=== PATIENT | female | born 1955 | race Caucasian/White ===

== ENCOUNTER 2023-10-06 19:50 | Observation (INO) | payer BC, SELFPAY ==
[2023-10-06] VITALS (11 sets, daily range): BP systolic 152–172; BP diastolic 82–137; PULSE 71–79; RESP 16–18; TEMP 36.6–36.7; O2SAT 96–98; BMI 27.4; BMI 25.3
--- NOTE | 2023-10-06 20:00 | ED.GENADULT ---
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 Patient notes that she has had pain on the left side of her neck for most of the day. 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 She does note that she has a carcinoid tumor near the left carotid. She states briefly earlier in the day she had a ?flash? headache in the right adventism. This has not come back. This evening at approximately 1930 hours she experienced a 10 minute episode of difficulty with word finding. Her did witness this. She states that she knew what she wanted to say but could not get it out. I did ask us been what he was hearing and he states that there were no specific words just sounds. During this time she denies numbness or tingling of the body. She does note all overall fatigue but states that she worked today. No recent cough cold or congestion. Patient is receiving chemo injections for carcinoid neuroendocrine cancer. She is currently on baby aspirin daily. Denies rapid heart rate or irregular heart rate. Was able to ambulate but seemed to be slower than normal per her . Patient notes multiple abdominal surgery with multiple abdominal clips and therefore is concerned about possible MRI. In 2008 she had ischemic small bowel and had part of the small bowel removed. In 2015 she had large part of the large intestine removed. She has also had a hysterectomy as well as cholecystectomy. Related Data Home Medications ?Medication ?Instructions ?Recorded ?Confirmed aspirin 81 mg tablet,delayed 81 mg PO QDAY 12/23/22 12/23/22 release cholecalciferol (vitamin D3) 75 75 mcg PO QDAY 12/23/22 12/23/22 mcg (3,000 unit) tablet lanreotide 120 mg/0.5 mL 120 mg subcut Q8W 12/23/22 12/23/22 subcutaneous syringe metformin 500 mg tablet 500 mg PO BID 12/23/22 12/23/22 Allergies Allergy/AdvReac Type Severity Reaction Status Date / Time No Known Drug Allergies Allergy Verified 12/23/22 17:37 Review of Systems Status of ROS: Reports: 10 or more systems reviewed and unremarkable except as noted in History and below [facility] Social History Smoking Status: Never smoker Do you use any of these nicotine containing products: None How often do you have a drink containing alcohol: never How often do you have six or more drinks on one occasion: Never AUDIT-C Alcohol total score: 0 Non-prescribed substance use: denies use Exam Narrative: Exam Narrative: Patient is alert and oriented. Makes good eye contact. Appears fatigued. But mentating and speaking normally. EOM is full with pupils equal round and reactive. Head is atraumatic normocephalic. Heart with a regular rate and rhythm. No additional heart sounds or murmurs noted. Lungs are clear bilaterally. Abdomen soft nontender. Lower extremities with 1+ peripheral edema. Upper extremity strength and motor intact. Lower extremity strength and motor intact. Stroke scale 0 Const: Vital Signs, click to edit/add: Vital Signs - 24 hr 10/06/23 19:53 10/06/23 20:41 10/06/23 20:42 Temperature 98.1 F Pulse Rate 78 77 Pulse Rate [Left P ulse Oximeter] 79 Respiratory Rate 16 Blood Pressure 160/137 H Blood Pressure [Ri ght Upper Arm] 171/89 H Pulse Oximetry 97 98 97 Oxygen Delivery Me thod Room Air 10/06/23 20:45 10/06/23 20:47 10/06/23 20:48 Temperature Pulse Rate 72 73 76 Pulse Rate [Left P ulse Oximeter] Respiratory Rate Blood Pressure 159/84 H Blood Pressure [Ri ght Upper Arm] Pulse Oximetry 97 96 96 Oxygen Delivery Me thod 10/06/23 21:00 10/06/23 21:02 10/06/23 21:15 Temperature Pulse Rate 71 75 71 Pulse Rate [Left P ulse Oximeter] Respiratory Rate Blood Pressure 152/82 H Blood Pressure [Ri ght Upper Arm] Pulse Oximetry 97 97 97 Oxygen Delivery Me thod 10/06/23 21:17 Temperature Pulse Rate 71 Pulse Rate [Left P ulse Oximeter] Respiratory Rate Blood Pressure 162/87 H Blood Pressure [Ri ght Upper Arm] Pulse Oximetry 97 Oxygen Delivery Me thod Documenting provider has reviewed patient's vital signs: yes Course Course ED Course: Patient seen immediately after triage and sent to CT for CT of the head and CTA of head and neck. Contacting Neurology concurrently. IV had been placed. Will check CBC, comprehensive panel, CRP, urinalysis as well as EKG. Consultations Consultation #1: I had the pleasure of speaking with Dr. Rankin from [facility]. With normal CT and CTA she does suggest hospitalization with echocardiogram and MRI tomorrow. Does not feel MRA is necessary if the CTA is normal. I did convey to the hospitalist that the CTA is are preliminary reads and will be read for a final tomorrow. While on common sometimes there is a change and they should watch for goes reports. Also suggested is an echocardiogram, continuing baby aspirin daily and permissive hypertension. Blood pressure goals below 180/100. We are directed to treat if blood pressure rises above 180/100. Vital Signs Vital signs: Initial Vital Signs Temperature 98.1 F 10/06/23 19:53 Temperature Source Temporal Artery Scan 10/06/23 19:53 Pulse Rate 79 10/06/23 19:53 Pulse Rhythm Regular 10/06/23 19:53 Respiratory Rate 16 10/06/23 19:53 Blood Pressure 171/89 H 10/06/23 19:53 Blood Pressure Mean 116 H 10/06/23 19:53 Blood Pressure Position Sitting 10/06/23 19:53 Pulse Oximetry 97 10/06/23 19:53 Oxygen Delivery Method Room Air 10/06/23 19:53 Vital Signs Temperature 98.1 F 10/06/23 19:53 Pulse Rate 79 10/06/23 19:53 Respiratory Rate 16 10/06/23 19:53 Blood Pressure 171/89 H 10/06/23 19:53 Pulse Oximetry 97 10/06/23 19:53 Oxygen Delivery Method Room Air 10/06/23 19:53 Temperature 98.1 F 10/06/23 19:53 Pulse Rate 71 10/06/23 21:17 Respiratory Rate 16 10/06/23 19:53 Blood Pressure 162/87 H 10/06/23 21:17 Pulse Oximetry 97 10/06/23 21:17 Oxygen Delivery Method Room Air 10/06/23 19:53 Medical Decision Making MDM Narrative Medical decision making narrative: 1. Transient neurological deficit-approximately 10 minute speech difficulty occurring at 1930 hours. No associated facial droop or weakness. CT/CTA reassuring. Neurology suggest overnight monitoring, echocardiogram, MRI, permissive hypertension not to exceed 180/100, continued aspirin use. 2. Neck pain-possibly muscular in nature. Patient does have noted carcinoid tumor near carotid artery. Range of motion of neck is full. 3. Hypertension-patient presenting with a blood pressure of 179 over 89. Discussion with neurologist. Suggest permission of hypertension unless blood pressure rises to 180/100. 4. Carcinoid neuroendocrine cancer-currently seeing [place] [facility], Dr. Faith. Receives injections of lanreotide. Last injection approximately 4 weeks ago 5. Disposition-admit under the care of Dr. Paula Mulligan hospitalist. Discussed plan with patient and her . Note patient has self-reported history of atrial fibrillation/flutter. She states this normally occurs as the lanreotide is wearing off. She last had the injection 4 weeks ago. She has not felt any irregular heartbeat recently. She takes aspirin daily. Lab Data Lab results reviewed: Yes I reviewed the patient's lab results Labs: Lab Results 10/06/23 10/06/23 Range/Units 20:10 20:25 WBC 7.75 (4.50-11.00) K/uL RBC 4.65 (4.00-5.20) m/uL Hgb 13.2 (12.0-16.0) gm/dL Hct 39.3 (33.0-51.0) % MCV 85 (80-100) fL MCH 28 (26-34) pg MCHC 34 (32-36) gm/dL RDW Coeff of Raquel 13.1 (11.5-15.5) % Plt Count 250 (140-440) K/uL Neut % (Auto) 69.2 (42.0-72.0) % Lymph % (Auto) 19.7 L (20-44) % [place] % (Auto) 6.6 (0.0-11.0) % Eos % (Auto) 3.7 (0.0-7.0) % Baso % (Auto) 0.4 (0.0-3.0) % Neut # (Auto) 5.36 (1.7-7.0) K/uL Lymph # (Auto) 1.50 (0.90-2.90) K/uL [place] # (Auto) 0.50 (0.00-0.90) K/UL Eos # (Auto) 0.29 (0.00-0.50) K/uL Baso # (Auto) 0.03 (0.00-0.30) K/uL Abs Immat Gran (auto) 0.03 (0.00-0.30) K/uL Imm/Tot Granulo (auto) 0.4 % Sodium 137 (135-149) mmol/L Potassium 3.6 (3.6-5.1) mmol/L Chloride 104 (96-114) mmol/L Carbon Dioxide 25 (20-32) mmol/L Anion Gap 8 (7-15) mEq/L BUN 17 (7-30) mg/dL Creatinine 1.1 (0.5-1.5) mg/dL Estimated Creat Clear 46.94 Estimated GFR 54 ml/min Glucose 212 H (60-115) mg/dL Calcium 8.9 (8.4-10.6) mg/dL Total Bilirubin 0.5 (0.1-1.5) mg/dL AST 23 (12-35) U/L ALT 17 (4-35) U/L Alkaline Phosphatase 68 (40-150) U/L C-Reactive Protein 0.8 (0.5-1.0) mg/dL Total Protein 6.6 (6.0-8.3) g/dL Albumin 4.3 (3.3-5.0) g/dL Urine Color Yellow (Yellow) Urine Appearance Clear (Clear) Urine pH 5.5 (5.0-8.5) Ur Specific [place] 1.010 (1.000-1.030) Urine Protein Negative (Negative) Urine Glucose (UA) Negative (Negative) Urine Ketones Negative (Negative) Urine Blood 1+ A (Negative) Urine Nitrite Negative (Negative) Urine Bilirubin Negative (Negative) Urine Urobilinogen 0.2 (0.2-1.0) Ur Leukocyte Esterase Trace A (Negative) Urine RBC 2-5 A (0-2) Urine WBC 2-5 (0-5) Ur Squamous Epith Cells Few (None-Few) Urine Bacteria Few A (None) Imaging Data CT scan - head: Attestation: I have reviewed the pertinent imaging results. My impression: No evidence of bleeding. Radiologist's impression: CT of the brain / head without intravenous contrast. Multiplanar axial, coronal, and sagittal reformats were reconstructed. FINDINGS: No intracranial hemorrhage. Normal appearance of the white matter. No acute or subacute cortically based infarct. No mass or mass effect. Normal ventricles. No skull fractures. No worrisome focal bone lesion. IMPRESSION: Normal head CT. CTA head and neck: Attestation: I have reviewed the pertinent imaging results. Radiologist's impression: FINDINGS: No high-grade stenosis, dissection, or aneurysm of the carotid or vertebral arteries. No embolus, thrombus, high-grade stenosis, or aneurysm of the major intracranial arteries. IMPRESSION: No acute findings on CT angiogram of the head and neck. ECG Data Attestation: I personally reviewed and interpreted this ECG as follows: Interpretation: Sinus rhythm at a rate of 78. I do not note any acute ST or T-wave changes. Q T and AK intervals within normal limits. Discharge Plan Discharge Clinical Impression: Transient neurologic deficit Patient Disposition: Admitted As Observation Condition: Unchanged
--- NOTE | 2023-10-06 20:09 | CRLHL7_ITS ---
For Patients: As a result of the Century Cures Act, medical imaging exams and procedure reports are released immediately into your electronic medical record. You may view this report before your referring provider. If you have questions, please contact your health care provider. INDICATION: Neck pain, right-sided headache, history of carcinoid.. COMPARISON: None. TECHNIQUE: CT of the brain / head without intravenous contrast. Multiplanar axial, coronal, and sagittal reformats were reconstructed. FINDINGS: No intracranial hemorrhage. Normal appearance of the white matter. No acute or subacute cortically based infarct. No mass or mass effect. Normal ventricles. No skull fractures. No worrisome focal bone lesion. IMPRESSION: Normal head CT. Please note that all CT scans at this facility use dose modulation, iterative reconstruction, and/or weight-based dosing when appropriate to reduce radiation dose to as low as reasonably achievable. Dictated by Sheyla Mooney MD @ 10/06/2023 8:46:24 PM (Electronically Signed)
--- NOTE | 2023-10-06 20:09 | CRLHL7_ITS ---
For Patients: As a result of the Century Cures Act, medical imaging exams and procedure reports are released immediately into your electronic medical record. You may view this report before your referring provider. If you have questions, please contact your health care provider. DATE: 10/06/2023 CLINICAL HISTORY: Patient with headache and neck pain. TECHNIQUE: Standard helical CT image acquisition of the neck up to the skull base after bolus intravenous contrast enhancement. 2D and 3D MIP images for post-processing were performed and interpreted on an independent workstation and 3D images were permanently archived. COMPARISON: CT same day. FINDINGS: The origins of the great vessels from the aortic arch are patent. The origin of the right vertebral artery is patent. The origin of the left vertebral artery is patent. The common carotid arteries are patent. There is no stenosis at the origin of the right internal carotid artery. There is plaque without stenosis at the origin of the left internal carotid artery. The rest of the cervical segments of the internal carotid arteries are patent up to the skull base. The right vertebral artery is dominant. The cervical segments of the vertebral arteries are patent up to the skull base. The visualized lung apices are unremarkable. The thyroid gland is unremarkable. The soft tissues of the neck are unremarkable. There are degenerative changes in the cervical spine. IMPRESSION: Patent cervical vasculature. Please note that all CT scans at this facility use dose modulation, iterative reconstruction, and/or weight-based dosing when appropriate to reduce radiation dose to as low as reasonably achievable. Dictated by America Robert MD @ 10/07/2023 10:52:51 AM (Electronically Signed)
--- NOTE | 2023-10-06 20:09 | CRLHL7_ITS ---
For Patients: As a result of the Century Cures Act, medical imaging exams and procedure reports are released immediately into your electronic medical record. You may view this report before your referring provider. If you have questions, please contact your health care provider. DATE: 10/06/2023 CLINICAL HISTORY: Patient with headache. TECHNIQUE: Standard helical CT image acquisition through the intracranial circulation following intravenous administration of contrast material with bolus tracking. 2D and 3D MIP images for post-processing were performed and interpreted on an independent workstation and 3D images were permanently archived. COMPARISON: CT same day. FINDINGS: There is no cerebral aneurysm or large vessel occlusion. The right internal carotid artery is normal. The right middle cerebral artery and its branches are normal. The right anterior cerebral artery and its branches are normal. The left internal carotid artery is normal. The left middle cerebral artery and its branches are normal. The left anterior cerebral artery and its branches are normal. The anterior communicating artery is well visualized and appears normal. The right vertebral artery and PICA are normal. The left vertebral artery and PICA are normal. The vertebral arteries are codominant. The basilar artery is patent and appears normal. The right posterior cerebral artery is normal. The left posterior cerebral artery is normal. The visualized venous structures are patent. IMPRESSION: Patent proximal intracranial vasculature without intracranial aneurysms. Please note that all CT scans at this facility use dose modulation, iterative reconstruction, and/or weight-based dosing when appropriate to reduce radiation dose to as low as reasonably achievable. Dictated by America Robert MD @ 10/07/2023 10:56:13 AM (Electronically Signed)
[2023-10-06 20:31] LABS: Basophils Absolute Auto 0.03 K/uL (0.00-0.30); Basophils Percent Auto 0.4 % (0.0-3.0); Eosinophils Absolute Auto 0.29 K/uL (0.00-0.50); Eosinophils Percent Auto 3.7 % (0.0-7.0); Hematocrit 39.3 % (33.0-51.0); Hemoglobin* 13.2 gm/dL (12.0-16.0); Immature Granulocytes Abs Auto 0.03 K/uL (0.00-0.30); Immature Granulocytes Pct Auto 0.4 %; Lymphocytes Percent Auto 19.7 % (20-44); Mean Corpuscular HGB Conc 34 gm/dL (32-36); Mean Corpuscular Hemoglobin 28 pg (26-34); Mean Corpuscular Volume 85 fL (80-100); Monocytes Percent Auto 6.6 % (0.0-11.0); Neutrophils Absolute Auto 5.36 K/uL (1.7-7.0); Neutrophils Percent Auto 69.2 % (42.0-72.0); Platelet Count* 250 K/uL (140-440); RDW Coefficient of Variation % 13.1 % (11.5-15.5); Red Blood Count 4.65 m/uL (4.00-5.20); White Blood Count* 7.75 K/uL (4.50-11.00)
[2023-10-06 20:32] LABS: Appearance Urine Clear (Clear); Bilirubin Urine Negative (Negative); Blood Urine 1+ (Negative); Color Urine Yellow (Yellow); Glucose Urine Negative (Negative); Ketones Urine Negative (Negative); Leukocyte Esterase Urine Trace (Negative); Nitrite Urine Negative (Negative); Protein Urine Negative (Negative); Urobilinogen Urine 0.2 (0.2-1.0); pH Urine 5.5 (5.0-8.5)
[2023-10-06 20:39] LABS: Slide Review Reflex No
[2023-10-06 20:45] LABS: Albumin* 4.3 g/dL (3.3-5.0); Chloride* 104 mmol/L (96-114); Potassium* 3.6 mmol/L (3.6-5.1); Sodium* 137 mmol/L (135-149)
[2023-10-06 20:47] LABS: Bilirubin Total* 0.5 mg/dL (0.1-1.5); Creatinine* 1.1 mg/dL (0.5-1.5); Est. Creatinine Clearance* 46.94; Estimated Glomerular Filt Rate 54 ml/min
[2023-10-06 20:48] LABS: Alanine Aminotransferase* 17 U/L (4-35); Alkaline Phosphatase* 68 U/L (40-150); Anion Gap 8 mEq/L (7-15); Aspartate Amino Transferase* 23 U/L (12-35); Blood Urea Nitrogen* 17 mg/dL (7-30); Calcium* 8.9 mg/dL (8.4-10.6); Carbon Dioxide* 25 mmol/L (20-32); Glucose* 212 mg/dL (60-115); Total Protein* 6.6 g/dL (6.0-8.3)
[2023-10-06 20:51] LABS: C Reactive Protein* 0.8 mg/dL (0.5-1.0)
--- NOTE | 2023-10-06 20:53 | ED.NURSE ---
Pt reports not having any slurred speech, face is appearing symmetrical at this time. No one sided weakness.
[2023-10-06 20:57] LABS: Bacteria Urine Few; Squamous Epithelial Cell Urine Few (None-Few)
--- NOTE | 2023-10-06 21:52 | ED.NURSE ---
Report given to dirk RN, pt to 256.
[2023-10-06] MEDS: 0.9 % SODIUM CHLORIDE 500 ML 500 ML IV (22:49)
--- NOTE | 2023-10-06 23:00 | PM.IMHP1 ---
Hospitalist- H&P: HPI History of Present Illness Time Seen by Provider: 22:50 Date Seen: 10/06/23 Chief complaint: Diff forming words, Pain on L side neck Narrative: Wendy Medley is a 68 year old female with h/o DM2 came in through the ER for difficulty speaking. She was sitting in a restaurant with her having a conversation around 7pm when she suddenly couldn't find the words. Her speech was coming out in parts of words or syllables. She knew she was having difficulty and her noticed it as well. It lasted about 10-15 minutes then resolved completely on its own. She has not had any return of these or any other symptoms. This morning she felt like the left side of her neck was stiff, painful and swollen since waking at 6am and had a brief sharp stabbing pain on the right side of her head/forehead around 11am. This went away on its own after 45 seconds to a minute. Neck stiffness went away this evening sometime. She's never had anything like this before. 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 This tumor was found as part of a workup for a mass in her mesentery that was causing intestinal blockage. She has developed many allergies to food since then including banana, kiwis, avocados, citric that cause severe abdominal cramps. For the carcinoid tumor she receives lanreotide injections every 3-6 months. She notes a racing heart rate at night sometimes for a few nights when she is due for her next dose. She tells me that this is atrial fibrillation, but it has but never been diagnosed as that. She said she was told when she started those injections that she could develop atrial fibrillation so she just assumed that that was it. She has not had a director of cardiac rehabilitation or ever sought medical care for this racing heart. She tells me that she has discussed it with her oncologist. Review of Systems Status of ROS: Reports: 10 or more systems reviewed and unremarkable except as noted in History and below [facility] Medical History (Updated 10/07/23 @ 00:17 by Paula Mulligan MD) Neuroendocrine tumor ?D3A.8 - Other benign neuroendocrine tumors (ICD-10) Superficial thrombophlebitis ?I80.9 - Phlebitis and thrombophlebitis of unspecified site (ICD-10) Varicose veins of both lower extremities ?I83.93 - Asymptomatic varicose veins of bilateral lower extremities (ICD-10) Type 2 diabetes mellitus ?E11.9 - Type 2 diabetes mellitus without complications (ICD-10) Obesity ?E66.9 - Obesity, unspecified (ICD-10) Hyperlipidemia ?E78.5 - Hyperlipidemia, unspecified (ICD-10) History of uterine cancer ?Z85.42 - Personal history of malignant neoplasm of other parts of uterus (ICD-10) Carcinoid tumor of small intestine, malignant ?C7A.019 - Malignant carcinoid tumor of the small intestine, unspecified portion (ICD-10) Surgical History (Updated 10/06/23 @ 23:47 by Paula Mulligan MD) History of colon surgery ?Z98.890 - Other specified postprocedural states (ICD-10) H/O section ?Z98.891 - History of uterine scar from previous surgery (ICD-10) S/P cholecystectomy ?Z90.49 - Acquired absence of other specified parts of digestive tract (ICD-10) H/O: hysterectomy ?Z90.710 - Acquired absence of both cervix and uterus (ICD-10) Family History Mother High blood pressure Social History (Updated 10/06/23 @ 23:18 by Paula Mulligan MD) Narrative: . 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 Smoked for about 3 years around 17 years of age. Denies alcohol. FULL CODE. What is your current living situation?: I presently have a place to live Problems where you live: no known problems Problems where you live details: NA In the past 12 months, utilities in danger of being shut off: no In past 12 months, lack of transportation kept you from medical appts, meetings, work, or getting things needed for daily living: no In the past 12 mos, have been you worried that your food would run out before you had money to buy more?: never true In the past 12 mos, the food you bought just didn't last and you didn't have money to buy more?: never true Smoking Status: Never smoker Do you use any of these nicotine containing products: None Second hand tobacco smoke exposure: No How often do you have a drink containing alcohol: never How often do you have six or more drinks on one occasion: Never AUDIT-C Alcohol total score: 0 Non-prescribed substance use: denies use Caffeine: Yes How often does anyone, including family, friends and others, physically hurt you: never How often does anyone, including family, friends and others, insult or talk down to you: never How often does anyone, including family, friends and others, threaten you with harm: never How often does anyone, including family, friends and others, scream or curse at you: never service: No Meds Home Medications and Allergies Home Medications ?Medication ?Instructions ?Recorded ?Confirmed ?Type aspirin 81 mg tablet,delayed 81 mg PO QDAY 12/23/22 10/06/23 History release cholecalciferol (vitamin D3) 75 75 mcg PO QDAY 12/23/22 10/06/23 History mcg (3,000 unit) tablet lanreotide 120 mg/0.5 mL 120 mg subcut Q8W 12/23/22 10/06/23 History subcutaneous syringe metformin 500 mg tablet 500 - 1,000 mg PO BID 12/23/22 10/06/23 History ibuprofen 200 mg capsule 200 mg PO Q6-8H PRN 10/06/23 10/06/23 History mecobalamin (vitamin B12) 1,000 1,000 mcg sublingual 3XW 10/06/23 10/06/23 History mcg disintegrating tablet,sublingual Allergies Allergy/AdvReac Type Severity Reaction Status Date / Time [place] And Derivatives Allergy Unknown Verified 10/06/23 23:00 cinnamon Allergy SOB Verified 10/06/23 23:00 loren Allergy SOB Verified 10/06/23 23:00 cough syrup Allergy Mild Uncoded 10/06/23 23:00 Allergies/Adverse Reaction Comments: Vitamin B12 Exam Narrative: Exam Narrative: General: No acute distress. Awake alert oriented x3. HEENT: Normocephalic atraumatic, pupils equally round and reactive to light and accommodation. Oropharynx clear. Mucous membranes are moist. No cervical lymphadenopathy, thyromegaly or carotid bruits. No JVD. I do not appreciate any swelling on the neck that she described. She did say it was gone at this time. Neck is nontender to palpation. There is no erythema or rash. Cardiovascular: Regular rate and rhythm. No murmurs, gallops, or rubs. Chest: No increased work of breathing. Clear to auscultation bilaterally. No crackles or wheezes. Abdomen: Low midline scar, well healed. Bowel sounds present. Soft, nondistended, nontender. No hepatosplenomegaly or masses. Extremities: Significant varicose veins in the bilateral lower extremities. These are nontender to palpation. 1+ bilateral lower extremity edema, no cyanosis or clubbing. Skin: No jaundice, no pallor, no rashes. Neuro: There are no focal deficits. Romberg is negative. Gait is within normal limits. Cranial nerves 2-12 are intact. Extraocular movements are full. No nystagmus. No facial asymmetry. Tongue is midline. Peripheral vision and vision are grossly intact. Strength is 5/5 in all 4 extremities. DTRs intact and symmetric. Light touch sensation is intact in face body and extremities. Coordination is intact in upper and lower extremities. Const: Vital Signs, click to edit/add: Vital Signs - 24 hr 10/06/23 19:53 10/06/23 20:41 10/06/23 20:42 Temperature 98.1 F Pulse Rate 78 77 Pulse Rate [Left P ulse Oximeter] 79 Respiratory Rate 16 Blood Pressure 160/137 H Blood Pressure [Ri ght Upper Arm] 171/89 H Pulse Oximetry 97 98 97 [facility] 10/06/23 20:45 10/06/23 20:47 10/06/23 20:48 Temperature Pulse Rate 72 73 76 Pulse Rate [Left P ulse Oximeter] Respiratory Rate Blood Pressure 159/84 H Blood Pressure [Ri ght Upper Arm] Pulse Oximetry 97 96 96 [facility] 10/06/23 21:00 10/06/23 21:02 10/06/23 21:15 Temperature Pulse Rate 71 75 71 Pulse Rate [Left P ulse Oximeter] Respiratory Rate Blood Pressure 152/82 H Blood Pressure [Ri ght Upper Arm] Pulse Oximetry 97 97 97 [facility] 10/06/23 21:17 Temperature Pulse Rate 71 Pulse Rate [Left P ulse Oximeter] Respiratory Rate Blood Pressure 162/87 H Blood Pressure [Ri ght Upper Arm] Pulse Oximetry 97 [facility] - H&P: Result Labs Labs: Short CBC 10/06/23 Range/Units 20:10 WBC 7.75 (4.50-11.00) K/uL Hgb 13.2 (12.0-16.0) gm/dL Hct 39.3 (33.0-51.0) % Plt Count 250 (140-440) K/uL BMP 10/06/23 20:10 Sodium 137 Potassium 3.6 Chloride 104 Carbon Dioxide 25 BUN 17 Creatinine 1.1 Glucose 212 H Calcium 8.9 Liver Function 10/06/23 Range/Units 20:10 Total Bilirubin 0.5 (0.1-1.5) mg/dL AST 23 (12-35) U/L ALT 17 (4-35) U/L Alkaline Phosphatase 68 (40-150) U/L Albumin 4.3 (3.3-5.0) g/dL Urine 10/06/23 Range/Units 20:25 Urine Color Yellow (Yellow) Urine Appearance Clear (Clear) Urine pH 5.5 (5.0-8.5) Ur Specific Jean 1.010 (1.000-1.030) Urine Protein Negative (Negative) Urine Glucose (UA) Negative (Negative) 10/06/2023 EKG: Normal sinus rhythm, 70 beats per minute, normal EKG. Ordering Physician: Lakia Galeas M.D. Date of Service: 10/06/23 Procedure(s): CT head/brain [facility] Accession Number(s): [id number] cc: Lakia Galeas M.D.; Alina Valdes M.D.~ For Patients: As a result of the Century Cures Act, medical imaging exams and procedure reports are released immediately into your electronic medical record. You may view this report before your referring provider. If you have questions, please contact your health care provider. INDICATION: Neck pain, right-sided headache, history of carcinoid.. COMPARISON: None. TECHNIQUE: CT of the brain / head without intravenous contrast. Multiplanar axial, coronal, and sagittal reformats were reconstructed. FINDINGS: No intracranial hemorrhage. Normal appearance of the white matter. No acute or subacute cortically based infarct. No mass or mass effect. Normal ventricles. No skull fractures. No worrisome focal bone lesion. IMPRESSION: Normal head CT. Please note that all CT scans at this facility use dose modulation, iterative reconstruction, and/or weight-based dosing when appropriate to reduce radiation dose to as low as reasonably achievable. Dictated by Sheyla Mooney MD @ 10/06/2023 8:46:24 PM (Electronically Signed) Preliminary CTA head and neck: FINDINGS: No high-grade stenosis, dissection, or aneurysm of the carotid or vertebral arteries. No embolus, thrombus, high-grade stenosis, or aneurysm of the major intracranial arteries. IMPRESSION: No acute findings on CT angiogram of the head and neck. Assessment and Plan Assessment and plan (1) Transient neurologic deficit: Problem comment: - symptoms concerning for TIA. Symptoms have completely resolved; she is not a candidate for tPA. CT and CTA were unremarkable. Appreciate stroke neuro is recommendations. Admit for overnight neuro and cardiac monitoring. Continue baby aspirin daily. Obtain MRI. Allow for permissive hypertension. Patient also experiences a racing heart rate on occasion, she does not have any diagnosis of atrial fibrillation. Cardiac monitoring as above and consider event monitor or Zio patch as an outpatient. Obtain echocardiogram. Status: Acute (2) Type 2 diabetes mellitus: Problem comment: Continue metformin Status: Chronic (3) Carcinoid tumor of small intestine, malignant: Status: Chronic (4) Hypertension: Problem comment: - Allow for permissive HTN Status: Suspected
--- NOTE | 2023-10-06 23:06 | PC.NURSE ---
Pt admitted to #[id number] @ 2220. VSS with exception to elevated BP. Pt is afebrile. No c/o pain but does report bilateral arm tenderness d/t previous IV infiltration and being poked for new IV access. Pt is A&O and able to make her needs known. Neuro checks unremarkable on assessment. PIV in left AC is SL and C/D/I. Pt is continent of B&B. HRR and LS CTA. SBA to independent for ambulation and transfers. is at bedside and attentive to patient's needs.
[2023-10-07] VITALS (8 sets, daily range): BP systolic 136–182; BP diastolic 86–97; PULSE 66–72; RESP 16–18; TEMP 36.6–36.8; O2SAT 94–98
--- NOTE | 2023-10-07 00:35 | CRLHL7_ITS ---
For Patients: As a result of the Century Cures Act, medical imaging exams and procedure reports are released immediately into your electronic medical record. You may view this report before your referring provider. If you have questions, please contact your health care provider. INDICATION: Word-finding difficulties. TECHNIQUE: Brain MRI without contrast. COMPARISON: Head CT from 10/06/2023. FINDINGS: No evidence of acute ischemia. Scattered microhemorrhages within both cerebral hemispheres (age indeterminate). Scattered FLAIR hyperintensities within the supratentorial white matter, typical for chronic microvascular ischemic change. Mild generalized parenchymal volume loss. No mass effect or herniation. No hydrocephalus or extra-axial collections. The pituitary gland, parasellar structures and optic chiasm are normal. Posterior fossa is normal. All the major intracranial vascular structures demonstrate normal flow-related signal. The orbital contents are normal. No calvarial or skull base marrow replacing process. No obstructive sinus disease. No extracranial soft tissue findings. IMPRESSION: 1. No acute infarction or other acute intracranial pathology. 2. Mild chronic microvascular ischemic changes. 3. Multiple cerebral microhemorrhages (age indeterminate). Lobar distribution suggests amyloid angiopathy as the underlying etiology. Sequela of other small vessel vasculopathy can be considered in the appropriate clinical setting. Dictated by Benja Almanzar MD @ 10/07/2023 12:06:21 PM (Electronically Signed)
[2023-10-07] MEDS: ASPIRIN 81 MG TABLET EC PO ×2 (01:19→08:17)
[2023-10-07] MEDS: ACETAMINOPHEN 325 MG TABLET PO (05:27)
--- NOTE | 2023-10-07 06:42 | PC.NURSE ---
Pt alert and oriented x3. Afebrile. Pt denies pain and headache. Pt has equal strength bilaterally in arms and legs. Pt is up ad cooper, tolerating regular diet, and voiding. Tele NSR.?
[2023-10-07] MEDS: METFORMIN 500 MG TABLET PO (08:17)
[2023-10-07] MEDS: SODIUM CHLORIDE 0.9 % (FLUSH) 10 ML SYRINGE 5 ML IVF (08:35)
[2023-10-07] MEDS: CLOPIDOGREL 300 MG TABLET PO (12:38)
[2023-10-07] MEDS: ATORVASTATIN 10 MG TABLET PO (12:41)
--- NOTE | 2023-10-07 14:16 | NUTR.NU ---
RDN with nutrition screen related to diet order. Patient admitted for possible stroke. Current weight 177 lb; height 5ft 7in; BMI 27.8 kg/m2. No weight history to assess. Current diet order is low fat/low cholesterol. Meal intakes have been adequate. RDN visited with patient whom reports having a good appetite. She declined diet education related to heart healthy diet at this time. RDN encouraged patient to let staff know is she has any questions or concerns. RDN to follow up as needed.
--- NOTE | 2023-10-07 15:30 | PM.DS1 ---
DS: Providers Provider Date Seen: 10/07/23 Date of admission: 10/06/23 21:41 Primary care physician: Alina Valdes MD Admitting Clinician: Paula Mulligan MD Consults: Stroke Neurology (Dr. Lawson) Attending Physician on discharge: Naty Sanchez MD Date of Discharge: 10/07/23 DS: Diagnosis Discharge Diagnosis (1) Transient neurologic deficit: Status: Acute Problem details: - symptoms on admission: aphasia, concerning for TIA - symptoms resolved in ED; CT and CTA were unremarkable - MRI results below - stroke Neuro (Dr. Lawson) consulted during stay: given MRI findings, recommend ASA and statin, f/u with Neurology for EEG, 28 day Zio patch to evaluate for afib (2) Carcinoid tumor of small intestine, malignant: Status: Chronic Problem details: - follows with Dr. Jesus Faith at [facility] (3) Type 2 diabetes mellitus: Status: Chronic Problem details: - on Metformin (4) Hypertension: Status: Suspected Problem details: - Allowed permissive HTN, age appropriate BP on discharge DS: Summary Hospital Course Hospital Course: Wendy is a 68 yo female who presented to the hospital on 10/05 for aphasia. Imaging in ER reassuring and symptoms resolved upon presentation. Admitted for telemetry and MRI, TTE reassuring. MRI results below: 1. No acute infarction or other acute intracranial pathology. 2. Mild chronic microvascular ischemic changes. 3. Multiple cerebral microhemorrhages (age indeterminate). Lobar distribution suggests amyloid angiopathy as the underlying etiology. Sequela of other small vessel vasculopathy can be considered in the appropriate clinical setting. Reviewed findings with Dr. Lawson of Stroke Neurology; he recommends daily ASA, statin, 28 day Zio Patch, Neurology f/u with EEG. Plavix was initially discussed as a TIA treatment, then discontinued after microhemorrhages noted on MRI. Patient was back to baseline and ready for d/c home on 10/06. PCP updated, appt made for next week. Status at Discharge Functional status at discharge: independent ambulation Overall status at discharge: patient is back to baseline Time Spent with Patient Time attestation: Total time spent providing and/or coordinating discharge services: Time spent: Greater than 30 minutes Specific discharge activities: medication reconciliation, patient education Exam Narrative: Exam Narrative: Alert and oriented, nontoxic, sitting comfortably in bed Const: Vital Signs, click to edit/add: Vital Signs - 24 hr 10/06/23 19:53 10/06/23 20:41 10/06/23 20:42 Temperature 98.1 F Pulse Rate 78 77 Pulse Rate [Left P ulse Oximeter] 79 Pulse Rate [Pulse Oximeter] Respiratory Rate 16 Blood Pressure 160/137 H Blood Pressure [Ri ght Arm] Blood Pressure [Ri ght Upper Arm] 171/89 H Pulse Oximetry 97 98 97 Oxygen Delivery Me thod Room Air 10/06/23 20:45 10/06/23 20:47 10/06/23 20:48 Temperature Pulse Rate 72 73 76 Pulse Rate [Left P ulse Oximeter] Pulse Rate [Pulse Oximeter] Respiratory Rate Blood Pressure 159/84 H Blood Pressure [Ri ght Arm] Blood Pressure [Ri ght Upper Arm] Pulse Oximetry 97 96 96 Oxygen Delivery Me thod 10/06/23 21:00 10/06/23 21:02 10/06/23 21:15 Temperature Pulse Rate 71 75 71 Pulse Rate [Left P ulse Oximeter] Pulse Rate [Pulse Oximeter] Respiratory Rate Blood Pressure 152/82 H Blood Pressure [Ri ght Arm] Blood Pressure [Ri ght Upper Arm] Pulse Oximetry 97 97 97 Oxygen Delivery Me thod 10/06/23 21:17 10/06/23 22:53 10/06/23 22:53 Temperature 98 F Pulse Rate 71 Pulse Rate [Left P ulse Oximeter] Pulse Rate [Pulse Oximeter] 75 Respiratory Rate 18 Blood Pressure 162/87 H Blood Pressure [Ri ght Arm] 172/84 H Blood Pressure [Ri ght Upper Arm] Pulse Oximetry 97 97 97 Oxygen Delivery Me thod Room Air Room Air 10/07/23 01:10 10/07/23 01:10 10/07/23 01:10 Temperature 98.2 F Pulse Rate Pulse Rate [Left P ulse Oximeter] Pulse Rate [Pulse Oximeter] 68 68 68 Respiratory Rate 16 Blood Pressure Blood Pressure [Ri ght Arm] 182/97 H Blood Pressure [Ri ght Upper Arm] Pulse Oximetry 96 Oxygen Delivery Me thod Room Air 10/07/23 01:39 10/07/23 05:15 10/07/23 05:15 Temperature 98.0 F Pulse Rate 71 Pulse Rate [Left P ulse Oximeter] Pulse Rate [Pulse Oximeter] 71 71 Respiratory Rate 16 Blood Pressure Blood Pressure [Ri ght Arm] 136/94 H Blood Pressure [Ri ght Upper Arm] Pulse Oximetry 96 Oxygen Delivery Me thod Room Air 10/07/23 07:00 10/07/23 08:10 10/07/23 09:00 Temperature Pulse Rate 66 Pulse Rate [Left P ulse Oximeter] Pulse Rate [Pulse Oximeter] 68 66 Respiratory Rate 18 Blood Pressure Blood Pressure [Ri ght Arm] 155/90 H Blood Pressure [Ri ght Upper Arm] Pulse Oximetry 94 Oxygen Delivery Me thod Room Air 10/07/23 11:00 Temperature 97.8 F Pulse Rate Pulse Rate [Left P ulse Oximeter] Pulse Rate [Pulse Oximeter] 72 Respiratory Rate 16 Blood Pressure Blood Pressure [Ri ght Arm] 144/86 H Blood Pressure [Ri ght Upper Arm] Pulse Oximetry 98 Oxygen Delivery Me thod Room Air DS: Data Data Completed and Pending Labs on day of discharge: Labs from last 24 hours 10/06/23 10/06/23 20:25 20:10 WBC 7.75 RBC 4.65 Hgb 13.2 Hct 39.3 MCV 85 MCH 28 MCHC 34 RDW Coeff of Raquel 13.1 Plt Count 250 Neut % (Auto) 69.2 Lymph % (Auto) 19.7 L Jones % (Auto) 6.6 Eos % (Auto) 3.7 Baso % (Auto) 0.4 Neut # (Auto) 5.36 Lymph # (Auto) 1.50 Jones # (Auto) 0.50 Eos # (Auto) 0.29 Baso # (Auto) 0.03 Abs Immat Gran (auto) 0.03 Imm/Tot Granulo (auto) 0.4 Sodium 137 Potassium 3.6 Chloride 104 Carbon Dioxide 25 Anion Gap 8 BUN 17 Creatinine 1.1 Estimated Creat Clear 46.94 Estimated GFR 54 Glucose 212 H Calcium 8.9 Total Bilirubin 0.5 AST 23 ALT 17 Alkaline Phosphatase 68 C-Reactive Protein 0.8 Total Protein 6.6 Albumin 4.3 Urine Color Yellow Urine Appearance Clear Urine pH 5.5 Ur Specific [place] 1.010 Urine Protein Negative Urine Glucose (UA) Negative Urine Ketones Negative Urine Blood 1+ A Urine Nitrite Negative Urine Bilirubin Negative Urine Urobilinogen 0.2 Ur Leukocyte Esterase Trace A Urine RBC 2-5 A Urine WBC 2-5 Ur Squamous Epith Cells Few Urine Bacteria Few A Preliminary micro results at discharge 10/06/23 20:25 Urine Culture - Preliminary Urine,Clean Catch Gram positive cocci Discharge Plan Discharge Disposition: Home, Self-Care Date of Admission: 10/06/23 21:41 Attending Provider on Discharge: Ching Perez Primary Care Provider: Alina Valdes Condition: Unchanged Anticipated Discharge Date/Time: 10/07/23 15:00 Discharge Medications: New clopidogrel [Plavix] 75 mg tablet 75 mg PO DAILY Qty: 30 0RF atorvastatin 10 mg Tablet 10 mg PO HS 30 Days Qty: 30 3RF Continued aspirin 81 mg tablet,delayed release (DR/EC) 81 mg PO QDAY cholecalciferol (vitamin D3) 75 mcg (3,000 unit) tablet 75 mcg PO DAILY lanreotide 120 mg/0.5 mL syringe 120 mg subcut Q8W mecobalamin (vitamin B12) 1,000 mcg tablet,disintegrating 1,000 mcg sublingual 3XW Rx Instructions: place tablet under tongue and allow to dissolve for at least30 secs before swallowing metformin 500 mg tablet extended release 24 hr 500 mg PO BID Held ibuprofen 200 mg capsule 200 mg PO Q6-8H PRN Hold Instructions: Resume on 11/18/23. Discharge Orders: Discharge Order (Routine); Ordered 10/07/23 Ordered By: Naty Sanchez Patient Education: Atorvastatin (By mouth), Clopidogrel (By mouth), Aphasia (DC) Additional Instructions: 1. Appt with Dr. Valdes scheduled to set up 28 day Zio Patch and review symptoms. 2. [facility]- Dr. Valdes will need to place referral to the stroke clinic as an outpatient to discuss MRI findings and obtain EEG. 3. 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 Continue your 81mg ASA daily. Activity Level: Activity as Tolerated Activity Detail: recommend breaks at work with shifts no longer than 4-6 hours Discharge Diet: Diabetic Follow Up Appointments: [facility]- Neurology [Provider Group] - None ( Patient has to go though primary doctor to be seen at [facility]. ) Alina Valdes MD [Primary Care Provider] - 10/13/23 11:20 am ([facility] for follow-up and to schedule a Neurology appointment. ) Forms: [employer] Info Instructions
--- NOTE | 2023-10-07 18:41 | PC.NURSE ---
shift note; vss stable. neuro checks intact. IV dc'd intact Lt AC. Reviewed dc instructions and copies sent with pt.. Belongings reviewed and sent with pt.
== END 2023-10-07 16:33 | disposition home or self-care (01) ==
LOC: ED 21:34 → MEDSURG 21:41
PROVIDERS: Admitting Provider Family Medicine; Emergency Provider Family Medicine; PCP Family Medicine; Visit Provider Family Medicine
DX: R29.818 Other symptoms and signs involving the nervous system (principal); C7A.019 Malignant carcinoid tumor of the small intestine, unspecified portion; R53.83 Other fatigue; Z79.899 Other long term (current) drug therapy; E11.9 Type 2 diabetes mellitus without complications; Z79.84 Long term (current) use of oral hypoglycemic drugs; Z79.82 Long term (current) use of aspirin; E78.5 Hyperlipidemia, unspecified; I10 Essential (primary) hypertension; I83.93 Asymptomatic varicose veins of bilateral lower extremities; R47.01 Aphasia; Z98.891 History of uterine scar from previous surgery; Z87.891 Personal history of nicotine dependence; Z85.42 Personal history of malignant neoplasm of other parts of uterus; Z90.49 Acquired absence of other specified parts of digestive tract; Z90.710 Acquired absence of both cervix and uterus; Z98.890 Other specified postprocedural states
CPT/HCPCS: 36415; 70450; 70496; 70498; 70551; 80053; 81001; 85025; 86140; 87086; 87186; 93005; 93306; 96360; 99284; 99285; G0378; G0427; A9270; J7030; Q9967

== ENCOUNTER 2024-02-16 18:58 | Emergency (ER) | payer MEDICARE, BC, SELFPAY ==
[2024-02-16 19:17] VITALS: BP 139/78; PULSE 80; RESP 18; TEMP 36.5; O2SAT 95; BMI 26.8
--- NOTE | 2024-02-16 19:31 | CRLHL7_ITS ---
For Patients: As a result of the Century Cures Act, medical imaging exams and procedure reports are released immediately into your electronic medical record. You may view this report before your referring provider. If you have questions, please contact your health care provider. Indication: Trauma. Technique: Left ankle, 3 views. Comparison: None. Findings/Impression: Bones: Alignment is normal. No displaced fractures or bone lesions. Joint spaces: Unremarkable. Soft tissues: Unremarkable. Dictated by Khris Vera MD @ 02/16/2024 7:59:09 PM (Electronically Signed)
--- NOTE | 2024-02-16 19:32 | ED.GENADULT ---
HPI - General Adult General Date Seen: 02/16/24 Chief complaint: Extremity Pain/Injury, Lower Stated complaint: Fall, L ankle/hand injury Time Seen by Provider: 02/16/24 19:25 Source: patient Mode of arrival: wheelchair Limitations: no limitations History of Present Illness HPI narrative: Patient is a 68-year-old woman who says she went out to get the mail a little bit ago, it was dark and she missed the curb falling on her left side. She says her right knee kind of swung over and is little bruise and scraped, she has little bruising on her left hand and scraped her left elbow as well, but her primary concern is her left ankle which she has been unable to put weight on it since. She did ice it at home but says the weight of the ice pack seem to hurt more so she does not wish to ice it further. No other injuries or complaints. Related Data Home Medications ?Medication ?Instructions ?Recorded ?Confirmed cholecalciferol (vitamin D3) 75 75 mcg PO DAILY 12/23/22 10/07/23 mcg (3,000 unit) tablet lanreotide 120 mg/0.5 mL 120 mg subcut Q8W 12/23/22 10/06/23 subcutaneous syringe mecobalamin (vitamin B12) 1,000 1,000 mcg sublingual 3XW 10/06/23 10/06/23 mcg disintegrating tablet,sublingual metformin 500 mg tablet,extended 500 mg PO BID 10/07/23 10/07/23 release 24 hr lisinopril 5 mg tablet 5 mg PO DAILY 02/16/24 02/16/24 Previous Rx's ?Medication ?Instructions ?Recorded atorvastatin 10 mg tablet 10 mg PO HS 30 days #30 tabs 10/07/23 Allergies Allergy/AdvReac Type Severity Reaction Status Date / Time [place] [employer] And Derivatives Allergy Unknown Verified 10/06/23 23:00 cinnamon Allergy SOB Verified 10/06/23 23:00 loren Allergy SOB Verified 10/06/23 23:00 cough syrup Allergy Mild Uncoded 10/06/23 23:00 [facility] Medical History (Updated 02/16/24 @ 20:12 by Lakia Wyatt MD) Neuroendocrine tumor ?D3A.8 - Other benign neuroendocrine tumors (ICD-10) Superficial thrombophlebitis ?I80.9 - Phlebitis and thrombophlebitis of unspecified site (ICD-10) Varicose veins of both lower extremities ?I83.93 - Asymptomatic varicose veins of bilateral lower extremities (ICD-10) Type 2 diabetes mellitus ?E11.9 - Type 2 diabetes mellitus without complications (ICD-10) Obesity ?E66.9 - Obesity, unspecified (ICD-10) Hyperlipidemia ?E78.5 - Hyperlipidemia, unspecified (ICD-10) History of uterine cancer ?Z85.42 - Personal history of malignant neoplasm of other parts of uterus (ICD-10) Carcinoid tumor of small intestine, malignant ?C7A.019 - Malignant carcinoid tumor of the small intestine, unspecified portion (ICD-10) Surgical History (Updated 10/06/23 @ 23:47 by Paula Mulligan MD) History of colon surgery ?Z98.890 - Other specified postprocedural states (ICD-10) H/O section ?Z98.891 - History of uterine scar from previous surgery (ICD-10) S/P cholecystectomy ?Z90.49 - Acquired absence of other specified parts of digestive tract (ICD-10) H/O: hysterectomy ?Z90.710 - Acquired absence of both cervix and uterus (ICD-10) Family History Mother High blood pressure Social History (Updated 10/06/23 @ 23:18 by Paula Mulligan MD) Narrative: . 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 Smoked for about 3 years around 17 years of age. Denies alcohol. FULL CODE. What is your current living situation?: I presently have a place to live Problems where you live: no known problems Problems where you live details: NA In the past 12 months, utilities in danger of being shut off: no In past 12 months, lack of transportation kept you from medical appts, meetings, work, or getting things needed for daily living: no In the past 12 mos, have been you worried that your food would run out before you had money to buy more?: never true In the past 12 mos, the food you bought just didn't last and you didn't have money to buy more?: never true Smoking Status: Never smoker Do you use any of these nicotine containing products: None Second hand tobacco smoke exposure: No How often do you have a drink containing alcohol: never How often do you have six or more drinks on one occasion: Never AUDIT-C Alcohol total score: 0 Non-prescribed substance use: denies use Caffeine: Yes How often does anyone, including family, friends and others, physically hurt you: never How often does anyone, including family, friends and others, insult or talk down to you: never How often does anyone, including family, friends and others, threaten you with harm: never How often does anyone, including family, friends and others, scream or curse at you: never service: No Exam Narrative: Exam Narrative: Vital signs reviewed In general, alert, well-appearing woman. She is sitting in a wheelchair. Extremities: She has a small abrasion on her elbow on the left, she has some contusion on the left hand. Minor abrasion on the right knee. No abrasion or laceration of the left ankle but that is where she has tenderness to palpation. She noted some tenderness of the proximal fibula as well but says that is not related to her injury, she just has varicose veins. Const: Vital Signs, click to edit/add: Vital Signs - 24 hr 02/16/24 19:17 Temperature 97.7 F Pulse Rate [Pulse Oximeter] 80 Respiratory Rate 18 Blood Pressure [Ri ght Upper Arm] 139/78 Pulse Oximetry 95 Oxygen Delivery Me thod Room Air Course Course ED Course: X-rays of the left ankle by my review are negative for fracture. Final radiology read likewise negative,Patient: YESSICA GALLAGHER Facility: [facility] Site . Site : 1955 Study: XRay-Extremity Left 3V-02/16/2024 7:46:59 PM Ordering Physician: Yoselin Dorman Final Report: Indication: Trauma. Technique: Left ankle, 3 views. Comparison: None. Findings/Impression: Bones: Alignment is normal. No displaced fractures or bone lesions. Joint spaces: Unremarkable. Soft tissues: Unremarkable. Dictated by Khris Vera MD @ 02/16/2024 7:59:09 PM She has a boot at home, she can certainly try wearing that. Right now she really does not want any pressure on it, so for now were going to use an Kishore wrap, crutches weight bear as tolerated. Reviewed that x-rays are not perfect, if it is not improving at all over the next week and she still cannot bear weight would recommend repeat imaging. Return any time for significant worsening or new symptoms. Tylenol, ice liberally over the next few days. Primary care next week for recheck. Vital Signs Vital signs: Initial Vital Signs Temperature 97.7 F 02/16/24 19:17 Temperature Source Temporal Artery Scan 02/16/24 19:17 Pulse Rate 80 02/16/24 19:17 Respiratory Rate 18 02/16/24 19:17 Blood Pressure 139/78 02/16/24 19:17 Blood Pressure Mean 98 02/16/24 19:17 Blood Pressure Position Sitting 02/16/24 19:17 Pulse Oximetry 95 02/16/24 19:17 Oxygen Delivery Method Room Air 02/16/24 19:17 Vital Signs Temperature 97.7 F 02/16/24 19:17 Pulse Rate 80 02/16/24 19:17 Respiratory Rate 18 02/16/24 19:17 Blood Pressure 139/78 02/16/24 19:17 Pulse Oximetry 95 02/16/24 19:17 Oxygen Delivery Method Room Air 02/16/24 19:17 Temperature 97.7 F 02/16/24 19:17 Pulse Rate 80 02/16/24 19:17 Respiratory Rate 18 02/16/24 19:17 Blood Pressure 139/78 02/16/24 19:17 Pulse Oximetry 95 02/16/24 19:17 Oxygen Delivery Method Room Air 02/16/24 19:17 Discharge Plan Discharge Clinical Impression: Left ankle sprain, Contusion of multiple sites Instructions: Ankle Sprain (DC) Additional Instructions: Crutches, weight bear as tolerated, you can use the boot you have at home if it can be worn reasonably comfortably. Ice liberally over the next few days. Tylenol as needed. Your x-rays today are normal, there is no evidence of a broken bone, but if you are not starting to improve over the next week, are still not able to bear weight at that time, you should have repeat imaging to rule out occult fracture. Return any time for significant worsening or new symptoms. Prescriptions: No Action cholecalciferol (vitamin D3) 75 mcg (3,000 unit) tablet 75 mcg PO DAILY lanreotide 120 mg/0.5 mL syringe 120 mg subcut Q8W lisinopril 5 mg tablet 5 mg PO DAILY mecobalamin (vitamin B12) 1,000 mcg tablet,disintegrating 1,000 mcg sublingual 3XW Rx Instructions: place tablet under tongue and allow to dissolve for at least30 secs before swallowing metformin 500 mg tablet extended release 24 hr 500 mg PO BID atorvastatin 10 mg Tablet 10 mg PO HS 30 Days Qty: 30 3RF Follow Up/Referrals: Alina Valdes MD [Primary Care Provider] - Stand Alone Forms: [facility] Info Instructions
== END 2024-02-16 20:20 | disposition home or self-care (01) ==
PROVIDERS: Emergency Provider Emergency Medicine; PCP Family Medicine
DX: S93.402A Sprain of unspecified ligament of left ankle, initial encounter (principal); X50.1XXA Overexertion from prolonged static or awkward postures, initial encounter
CPT/HCPCS: 73610; 99283; 99284